=== PATIENT | female | born 1975 | race Caucasian/White ===

== ENCOUNTER 2016-11-18 21:55 | Emergency (ER) | payer SELFPAY ==
--- NOTE | ~2016-11-18 | ER ---
PATIENT'S NAME: ALFONSO DAVISON [facility] AGE: 40 Y [address] ROOM: [place] [address] LOCATION: ED ADMIT DATE: 11/18/2016 ER/Outpatient Report DISCHARGE DATE: FAMILY PHYSICIAN: José Miguel Mitchell ATTENDING PHYSICIAN: Behzad Dave Time of Arrival: 2155 hours. Time of Evaluation: 2210 hours. CHIEF COMPLAINT: Asthma exacerbation. HISTORY OF PRESENT ILLNESS: This is a 40-year-old female, who presents to the ER, who states she has been having troubles with her asthma for the past 24 hours. The patient states that she thought she was getting it under control with her ProAir inhaler. She was able to do some stuff around the house today and then worsened again at 5 o'clock this evening. She states it makes her feel like her chest as tight. She has had a tight cough. She feels like her lips are tingling. She states she has had troubles with her asthma before like this. She does take some antihistamines at home. She is not for sure if maybe she got into something that she is allergic to. She has had no recent upper respiratory infections. No fevers. ALLERGIES: ASPIRIN AND IBUPROFEN. MEDICATIONS: Please see medication list nurse's notes. PAST MEDICAL HISTORY: Asthma. PAST SURGERIES: Pelvis surgery, head surgery, jaw surgery, knee scope, nasal surgery, carpal tunnel repair, and cholecystectomy. SOCIAL HISTORY: She does smoke cigarettes every once in a while. Drinks alcohol occasionally. REVIEW OF SYSTEMS: A 10-point review of systems was completed and was negative with the exception of those discussed in the HPI. PHYSICAL EXAMINATION: PATIENT'S NAME: ALFONSO DAVISON [facility] AGE: 40 Y [address] ROOM: [place] [address] LOCATION: ED ADMIT DATE: 11/18/2016 ER/Outpatient Report DISCHARGE DATE: FAMILY PHYSICIAN: José Miguel Mitchell ATTENDING PHYSICIAN: Behzad Dave VITAL SIGNS: Height 5 feet and 7 inches stated, weight 112 kg taken, blood pressure is 152/77, pulse 82, respirations 20, and saturations 94% on room air. [place] Coma Score is 15. GENERAL: Alert, calm, well-developed female, in mild distress. HEENT: Head normocephalic. She does display moist mucous membranes. LUNGS: Tight and wheezy. HEART: Regular rate and rhythm. No lifts, thrills, or murmurs. EXTREMITIES: No clubbing, cyanosis, or edema. She has full range of motion of all limbs. LABS AND X-RAYS: None were done. IMPRESSION: Exacerbation of her asthma. ASSESSMENT AND PLAN: We did give the patient Solu-Medrol 125 mg IM and we gave her an albuterol nebulizer treatment and follow that with a DuoNeb treatment approximately a 0.5 hour to 45 minutes later. The patient states she is feeling much better with this. I am going to dismiss her to home with a prescription for Z-DALIA, prednisone, and albuterol to use as directed. She needs to continue to push fluids, monitor her symptoms, and she needs to follow up with her primary care physician in 1 to 2 days for followup care. The patient understands and agrees with care. ANALILIA GORDON PA-C FOR MD MADHAVI BEY/anand /[id number] d: t: 11/22/162042, OUTPATIENT REPORT
== END 2016-11-18 23:10 | disposition disaster alternative care site (69) ==
LOC: GMED 21:55
DX: J45.901 Unspecified asthma with (acute) exacerbation (principal); F17.210 Nicotine dependence, cigarettes, uncomplicated; Z90.49 Acquired absence of other specified parts of digestive tract; Z98.890 Other specified postprocedural states; Z88.8 Allergy status to other drugs, medicaments and biological substances
CPT/HCPCS: J2930

== ENCOUNTER 2017-03-01 20:54 | Emergency (ER) | payer BC ==
--- NOTE | ~2017-03-01 | ENPV ---
Vascular Lower Extremities DVT Study Procedure Demographics Patient Name ALFONSO DAVISON Date of Study 03/01/2017 Patient Number [id number] Gender Female Date of 1975 Age 41 Visit Number [id number] Height Accession Number [id number] Weight Room Number BSA BMI Referring Tenzin Santana Physician Physician Physician Ordering Physician Tenzni Cota [employer] Director Of Admissions Nancy Joshua [facility], RV[facility] Conclusions Summary TECHNIQUE: The veins of the lower extremity on the left were evaluated from the groin to the ankle using paredes scale, compression, augmentation. Venous hemodynamics were evaluated with color flow and spectral Doppler. FINDINGS: Normal venous duplex study of the left lower extremity. There is no evidence of deep or superficial venous thrombosis. The right common femoral vein was imaged as well and found to be negative. IMPRESSION: NEGATIVE LEFT LOWER EXTREMITY VENOUS DOPPLER. Procedure Type of Study: Veins:Lower Extremities DVT Study, Lower Extremity Left. Indications for Study:Pain in Limb. Additional Indications:left leg pain Appropriate Use Criteria:9 Patient Status:Routine. Study Location:ER. Technical Quality:Adequate visualization. Risk Factors - The patient's risk factor(s) include: chronic lung disease. - The patient has a current/recent (within 1 year) tobacco history. Velocities are measured in cm/s ; Diameters are measured in cm Right Lower Extremities DVT Study Measurements Right 2D and Doppler Measurements + + + + +------+------+ + !Location !Visualized!Compressibility!Thrombosis!Signal!Reflux!Reflux ! ! ! ! ! ! ! !(sec) ! + + + + +------+------+ + !GSV Thigh !Yes !Yes !None !Phasic! ! ! + + + + +------+------+ + !Common !Yes !Yes !None !Phasic! ! ! !Femoral ! ! ! ! ! ! ! + + + + +------+------+ + Left Lower Extremities DVT Study Measurements Left 2D and Doppler Measurements + + + + +------+------+ + !Location !Visualized!Compressibility!Thrombosis!Signal!Reflux!Reflux ! ! ! ! ! ! ! !(sec) ! + + + + +------+------+ + !GSV Thigh !Yes !Yes !None !Phasic!No ! ! + + + + +------+------+ + !Common !Yes !Yes !None !Phasic!No ! ! !Femoral ! ! ! ! ! ! ! + + + + +------+------+ + !Prox !Yes !Yes !None !Phasic!No ! ! !Femoral ! ! ! ! ! ! ! + + + + +------+------+ + !Mid Femoral!Yes !Yes !None !Phasic!No ! ! + + + + +------+------+ + !Dist !Yes !Yes !None !Phasic!No ! ! !Femoral ! ! ! ! ! ! ! + + + + +------+------+ + !Popliteal !Yes !Yes !None !Phasic!No ! ! + + + + +------+------+ + !Gastroc !Yes !Yes !None !Phasic!No ! ! + + + + +------+------+ + !PTV !Yes !Yes !None !Phasic!No ! ! + + + + +------+------+ + !Peroneal !Yes !Yes !None !Phasic!No ! ! + + + + +------+------+ + Impressions Left Impression no dvt seen Signature dtt: Vern Hammond dtd: 03/01/17 2224 Physician Self Edadria
--- NOTE | ~2017-03-01 | ER ---
PATIENT'S NAME: ALFONSO DAVISON [facility] AGE: 41 Y [address] ROOM: [place] [address] LOCATION: [facility] ADMIT DATE: 03/01/2017 ER/Outpatient Report DISCHARGE DATE: 03/01/2017 FAMILY PHYSICIAN: PHYSICIAN, NO ATTENDING PHYSICIAN: Behzad Dave TIME SEEN: 2115 hours. CHIEF COMPLAINT: Left ankle and calf pain. HISTORY: The patient is a 41-year-old female who said that she tore a ligament in her ankle in November and was in a cast for 4 weeks, which she recently had removed. She has been in a brace. The patient was walking when she felt a pop. This occurred about 6:30. The pain has gotten worse. She has also noticed a firm area in her upper calf. ALLERGIES: SHE IS ALLERGIC TO ASPIRIN AND IBUPROFEN. CURRENT MEDICATIONS: 1. Symbicort. 2. Albuterol inhaler. PAST MEDICAL HISTORY: Asthma. PAST SURGICAL HISTORY: She has had pelvis, arm surgery. SOCIAL HISTORY: Smoker of quarter pack a day. Alcohol socially. REVIEW OF SYSTEMS: GENERAL: No recent illness. MUSCULOSKELETAL: Includes the recent torn ligament in her left ankle. Today, she has developed some ankle pain without any significant trauma. PHYSICAL EXAMINATION: VITAL SIGNS: Blood pressure 155/78, her respiratory rate of 20, pulse 94, O2 saturations 95%. GENERAL APPEARANCE: Alert and cooperative. MUSCULOSKELETAL: Exam of her left ankle, there was no obvious swelling, very PATIENT'S NAME: ALFONSO DAVISON [facility] AGE: 41 Y [address] ROOM: [place] [address] LOCATION: [facility] ADMIT DATE: 03/01/2017 ER/Outpatient Report DISCHARGE DATE: 03/01/2017 FAMILY PHYSICIAN: PHYSICIAN, NO ATTENDING PHYSICIAN: Behzad Dave minimal tenderness on the medial ankle. The Achilles tendon appeared intact. The left calf was still somewhat firm, kind of in midcalf area, does have some superficial varicosities. IMAGING: Doppler study of her left calf was negative for any deep vein thrombosis. ASSESSMENT: Mild left ankle pain. PLAN: The patient is going to use her boot over the weekend, limit activity, and then follow up with Steve Barragan on Saturday. The patient was given 20 of Willard for pain. Recommend elevation and ice. CARY RHOADES FOR MD JANET BEY/vandanal /[id number] d: 03/03/17 1556 t: 03/12/17 1826, OUTPATIENT REPORT
== END 2017-03-01 22:41 | disposition disaster alternative care site (69) ==
LOC: GMED 20:54
DX: M25.572 Pain in left ankle and joints of left foot (principal); I83.92 Asymptomatic varicose veins of left lower extremity; F17.210 Nicotine dependence, cigarettes, uncomplicated; J45.909 Unspecified asthma, uncomplicated; Z88.6 Allergy status to analgesic agent; Z98.890 Other specified postprocedural states; Z88.8 Allergy status to other drugs, medicaments and biological substances; Z79.899 Other long term (current) drug therapy